=== PATIENT | male | born 1945 | race Caucasian/White ===

== ENCOUNTER 2017-01-20 00:42 | Emergency (ER) | payer MEDICARE ==
[2017-01-20 01:10] VITALS: TEMP 97.7
[2017-01-20 01:31] LABS: BASO % 0.6 % (0.0-2.0); EOS # 0.3 K/uL (0.0-0.7); EOS % 4.9 % (0.0-4.0); HEMATOCRIT 48.5 % (35.0-51.0); LYMPH # 1.3 K/uL (1.0-4.3); MEAN CELL VOLUME 89.4 fL (80.0-94.0); MEAN CORPUSCULAR HEMOGLOBIN 29.6 pg (27.0-31.0); MEAN CORPUSCULAR HGB CONC 33.1 g/dL (33.0-37.0); MEAN PLATELET VOLUME 7.1 fL (7.2-11.7); MONO # 0.9 K/uL (0.0-0.8); MONO % 13.2 % (0.0-10.0); RED CELL DISTRIBUTION WIDTH 12.3 % (11.5-14.5); WHITE BLOOD COUNT 6.9 K/uL (4.8-10.8)
[2017-01-20 01:35] VITALS: O2SAT 99
[2017-01-20 01:46] LABS: ALB/GLOB RATIO 1.6 (1.0-2.1); ALKALINE PHOSPHATASE 50 U/L (38-126); ALT/SGPT 25 U/L (21-72); AST/SGOT 26 U/L (17-59); BILIRUBIN,TOTAL 0.7 mg/dL (0.2-1.3); BLOOD UREA NITROGEN 15 mg/dL (9-20); CALCIUM 9.1 mg/dl (8.6-10.4); CARBON DIOXIDE 28 mmol/L (22-30); CHLORIDE 90 mmol/L (98-107); GFR AFRICAN-AMERICAN > 60; GLUCOSE,RANDOM 152 mg/dL (75-110); POTASSIUM 4.6 mmol/L (3.6-5.2); SODIUM 129 mmol/L (132-148); TOTAL PROTEIN 7.5 g/dL (6.3-8.3)
[2017-01-20] MEDS ORDERED: Sodium Chloride 0.9% 1,000 ML IV ONE (02:04)
[2017-01-20] MEDS ORDERED: Sodium Chloride 0.9% 1,000 ML ONE (02:09)
[2017-01-20 02:28] VITALS: BP 158/83; PULSE 70; RESP 16
--- NOTE | 2017-01-20 02:41 | C.PDOC ---
Time Seen by Provider: 01/20/17 01:36 Chief Complaint (Nursing): High Blood Pressure Past Medical History Vital Signs: Last Vital Signs Temp 97.7 F 01/20/17 01:06 Pulse 70 01/20/17 02:27 Resp 16 01/20/17 02:27 BP 158/83 H 01/20/17 02:27 Pulse Ox 99 01/20/17 02:02 - Medical History PMH: HTN Surgical History: Appendectomy, Cholecystectomy - Social History Hx Alcohol Use: No Hx Substance Use: No - Immunization History Hx Tetanus Toxoid Vaccination: No Hx Influenza Vaccination: Yes Hx Pneumococcal Vaccination: No ED Course And Treatment - Laboratory Results Result Diagrams: 01/20/17 01:22 01/20/17 01:22 O2 Sat by Pulse Oximetry: 99 Disposition - Disposition Referrals: Non [facility] Provider, [Primary Care Provider] -
--- NOTE | 2017-01-20 02:41 | C.PDOC ---
History Of Present Illness 71 year old male with PMH DM and HTN presents to ED with complaints of very high blood pressure with associated dizziness. Patient also reports history of vertigo. Patient states symptoms started around 10pm and he took an extra dose of Lisinopril, however blood pressure remained elevated. Denies any chest pain, SOB, headache, visual changes, numbness or weakness. Time Seen by Provider: 01/20/17 01:36 Chief Complaint (Nursing): High Blood Pressure History Per: Patient, Family History/Exam Limitations: no limitations Onset/Duration Of Symptoms: Hrs Current Symptoms Are (Timing): Still Present Associated Symptoms: Dizziness. denies: Chest Pain, Dyspnea, Blurred Vision, Focal Weakness, Headache Past Medical History Reviewed: Historical Data, Nursing Documentation, Vital Signs Vital Signs: Last Vital Signs Temp 97.7 F 01/20/17 01:06 Pulse 70 01/20/17 02:27 Resp 16 01/20/17 02:27 BP 158/83 H 01/20/17 02:27 Pulse Ox 99 01/20/17 02:48 - Medical History PMH: HTN Surgical History: Appendectomy, Cholecystectomy Family History: States: Unknown Family Hx - Social History Hx Alcohol Use: No Hx Substance Use: No - Immunization History Hx Tetanus Toxoid Vaccination: No Hx Influenza Vaccination: Yes Hx Pneumococcal Vaccination: No Review Of Systems Constitutional: Negative for: Fever, Weakness, Malaise Eyes: Negative for: Vision Change Cardiovascular: Negative for: Chest Pain, Palpitations Respiratory: Negative for: Shortness of Breath Gastrointestinal: Negative for: Nausea, Vomiting, Abdominal Pain, Diarrhea, Constipation Skin: Negative for: Rash Neurological: Positive for: Dizziness. Negative for: Weakness, Numbness, Headache Physical Exam - Physical Exam Appears: Non-toxic, No Acute Distress Skin: Warm, Dry, No Diaphoretic, No Pale Head: Atraumatic, Normacephalic, No Tenderness, No Swelling Eye(s): bilateral: Normal Inspection, PERRL, EOMI Nose: Normal Neck: Normal ROM, Supple Chest: Symmetrical, No Tenderness, No Ecchymosis Cardiovascular: Rhythm Regular, No Murmur Respiratory: Normal Breath Sounds, No Wheezing Extremity: Bilateral: Atraumatic, Normal Color And Temperature, Normal ROM, Other (normal strength symmetric in all extremities) Pulses: Left Radial: Normal Neurological/Psych: Oriented x3, Normal Speech, Normal Cranial Nerves, No Cerebellar Signs, Normal Motor, Normal Sensation Gait: Unable To Assess ED Course And Treatment - Laboratory Results Result Diagrams: 01/20/17 01:22 01/20/17 01:22 Lab Interpretation: Abnormal ECG: Interpreted By Me, Viewed By Me ECG Rhythm: Sinus Rhythm ECG Interpretation: No Acute Changes Rate From EC O2 Sat by Pulse Oximetry: 99 (room air) Pulse Ox Interpretation: Normal Medical Decision Making Medical Decision Making: Impression: 71 y.o male with HTN and dizziness Plan: * EKG * Labs Progress: EKG obtained and reviewed by me and Dr Issa NS at 60 bpm with normal axis and no ST-T changes Labs reviewed showing mild hyponatremia Discussed results with Dr Issa who advised NS. On reassess and then agrees patient stable for discharge Upon discharge BP has improved. Patient remains alert and oriented with no focal deficits. Patient advised on follow up with primary doctor in 1-2 days or return to ER for any worsening symptoms. Patient is stable for discharge. Disposition Counseled Patient/Family Regarding: Diagnosis, Need For Followup - Disposition Referrals: Non [facility] Provider, [Primary Care Provider] - Disposition: HOME/ ROUTINE Disposition Time: 03:33 Condition: IMPROVED Additional Instructions: Please follow up with primary Dr Albert in 1-2 days for further evaluation continue your usual medications as prescribed to you Return to the emergency department at any time if symptoms persist or worsen. Instructions: Hypertensive Crisis (ED) - POA Present On Arrival: None - Clinical Impression Clinical Impression: Hypertensive urgency
== END 2017-01-20 03:42 | disposition home or self-care (01) ==
LOC: C.ER 00:42 → SUPCPDRO 00:42 → C.ER 03:42
DX: I16.0 Hypertensive urgency (principal); I10 Essential (primary) hypertension
CPT/HCPCS: 80053; 85025; 99285; J7040